=== PATIENT | female | born 1965 | race Caucasian/White ===

== ENCOUNTER → 2016-04-05 | Outpatient (CLI) | payer OTHER ==
--- NOTE | 2016-04-05 17:30 | DIAGNOSTIC IMAGING REPORT ---
PROCEDURE: XR SHOULDER 2 OR MORE VW-RIGHT INDICATION: HUMERUS HEAD FX TECHNIQUE: Four views COMPARISON: Right shoulder x-ray 08/08/2015 FINDINGS: Healed right humeral neck fracture. Mild AC joint degenerative change. Normal glenohumeral joint. Soft tissue calcifications consistent with calcific tendonitis. IMPRESSION: 1. Healed right humeral neck fracture 2. Calcific tendonitis 3. Mild right AC joint degeneration
== END ==
LOC: ED SRH 16:24
DX: S42.301D Unspecified fracture of shaft of humerus, right arm, subsequent encounter for fracture with routine healing (principal); M75.31 Calcific tendinitis of right shoulder; M19.011 Primary osteoarthritis, right shoulder